=== PATIENT | female | born 1950 | race Caucasian/White ===

== ENCOUNTER 2016-01-02 08:48 | Outpatient (RCR) | payer BC ==
[~2016-01-02 08:48] MED LIST: AML2.5T PO
[2016-01-02 09:00] LABS: MEAN CORPUSCULAR HEMOGLOBIN 29.9 PG (26.0-34.0); MEAN CORPUSCULAR HGB CONC 32.4 g/dL (31.0-37.0); MEAN CORPUSCULAR VOLUME 92 FL (80-100); MEAN PLATELET VOLUME 10.9 FL (6.0-9.5); PLATELET COUNT 181 10^3uL (150-450); WHITE BLOOD COUNT 3.96 10^3uL (4.0-11.0)
[2016-01-02 09:43] LABS: BAND NEUTROPHILS % 1 % (0-6); EOSINOPHILS % 3 % (0-4); LYMPHOCYTES # 1.4 #; MONOCYTES # 0.5 #; MONOCYTES % 17 % (3-11); RBC MORPH NORMAL (NORMAL); SEGMENTED NEUTROPHILS % 43 % (51-67); TOTAL CELLS COUNTED 100
[2016-01-16 08:36] LABS: BASOPHILS % (AUTO) 1 % (0-2); EOSINOPHILS # (AUTO) 0.1 10^3uL; EOSINOPHILS % (AUTO) 2 % (0-4); LYMPHOCYTES # (AUTO) 1.5 X10^3; MEAN CORPUSCULAR HEMOGLOBIN 30.3 PG (26.0-34.0); MEAN CORPUSCULAR VOLUME 95 FL (80-100); MEAN PLATELET VOLUME 11.7 FL (6.0-9.5); MONOCYTES # (AUTO) 0.7 X10^3; MONOCYTES % (AUTO) 12 % (3-11); NEUTROPHILS # (AUTO) 3.7 X10^3; NEUTROPHILS % (AUTO) 61 % (51-67); PLATELET COUNT 169 10^3uL (150-450); WHITE BLOOD COUNT 6.14 10^3uL (4.0-11.0)
[2016-01-30 08:40] LABS: MEAN CORPUSCULAR HEMOGLOBIN 30.6 PG (26.0-34.0); MEAN CORPUSCULAR HGB CONC 32.4 g/dL (31.0-37.0); MEAN CORPUSCULAR VOLUME 94 FL (80-100); MEAN PLATELET VOLUME 11.1 FL (6.0-9.5); PLATELET COUNT 178 10^3uL (150-450); WHITE BLOOD COUNT 5.78 10^3uL (4.0-11.0)
[2016-01-30 08:53] LABS: ALBUMIN 3.9 g/dL (3.4-5.0); ANION GAP 16.2 MEQ/L (3-15); CALCULATED IONIZED CALCIUM 4.1 mg/dL (3.8-4.6); MAGNESIUM* 1.7 mg/dL (1.6-2.3); PHOSPHORUS 3.7 mg/dL (2.4-4.9); TOTAL PROTEIN 7.2 g/dL (6.4-8.5)
[2016-01-30 09:43] LABS: BAND NEUTROPHILS % 1 % (0-6); EOSINOPHILS % 2 % (0-4); LYMPHOCYTES # 1.4 #; MONOCYTES # 0.2 #; MONOCYTES % 3 % (3-11); RBC MORPH NORMAL (NORMAL)
[2016-01-30 14:32] LABS: SEGMENTED NEUTROPHILS % 70 % (51-67); TOTAL CELLS COUNTED 100
[2016-02-13 08:49] LABS: MEAN CORPUSCULAR HEMOGLOBIN 30.2 PG (26.0-34.0); MEAN CORPUSCULAR HGB CONC 32.3 g/dL (31.0-37.0); MEAN CORPUSCULAR VOLUME 93 FL (80-100); MEAN PLATELET VOLUME 11.4 FL (6.0-9.5); PLATELET COUNT 151 10^3uL (150-450); WHITE BLOOD COUNT 6.65 10^3uL (4.0-11.0)
[2016-02-13 09:41] LABS: BAND NEUTROPHILS % 0 % (0-6); EOSINOPHILS % 1 % (0-4); LYMPHOCYTES # 1.1 #; MONOCYTES # 0.2 #; MONOCYTES % 3 % (3-11); SEGMENTED NEUTROPHILS % 78 % (51-67); TOTAL CELLS COUNTED 100
[2016-02-13 09:42] LABS: RBC MORPH NORMAL (NORMAL)
[2016-02-27 08:40] LABS: BASOPHILS % (AUTO) 0 % (0-2); EOSINOPHILS # (AUTO) 0.1 10^3uL; EOSINOPHILS % (AUTO) 2 % (0-4); LYMPHOCYTES # (AUTO) 1.2 X10^3; MEAN CORPUSCULAR HEMOGLOBIN 29.9 PG (26.0-34.0); MEAN CORPUSCULAR HGB CONC 31.8 g/dL (31.0-37.0); MEAN CORPUSCULAR VOLUME 94 FL (80-100); MEAN PLATELET VOLUME 11.1 FL (6.0-9.5); MONOCYTES # (AUTO) 0.7 X10^3; MONOCYTES % (AUTO) 10 % (3-11); NEUTROPHILS # (AUTO) 4.9 X10^3; NEUTROPHILS % (AUTO) 70 % (51-67); PLATELET COUNT 155 10^3uL (150-450); WHITE BLOOD COUNT 7.02 10^3uL (4.0-11.0)
[2016-03-12 08:33] LABS: BASOPHILS % (AUTO) 0 % (0-2); EOSINOPHILS # (AUTO) 0.2 10^3uL; EOSINOPHILS % (AUTO) 3 % (0-4); LYMPHOCYTES # (AUTO) 1.6 X10^3; MEAN CORPUSCULAR HEMOGLOBIN 29.6 PG (26.0-34.0); MEAN CORPUSCULAR HGB CONC 32.2 g/dL (31.0-37.0); MEAN CORPUSCULAR VOLUME 92 FL (80-100); MEAN PLATELET VOLUME 10.9 FL (6.0-9.5); MONOCYTES # (AUTO) 0.8 X10^3; MONOCYTES % (AUTO) 11 % (3-11); NEUTROPHILS # (AUTO) 4.5 X10^3; NEUTROPHILS % (AUTO) 64 % (51-67); PLATELET COUNT 153 10^3uL (150-450); WHITE BLOOD COUNT 7.14 10^3uL (4.0-11.0)
[2016-03-12 08:42] LABS: MAGNESIUM* 1.4 mg/dL (1.6-2.3)
== END 2016-04-01 | disposition home or self-care (01) ==
LOC: LAB 08:48
PROVIDERS: ATTEND Internal Medicine Hematology & Oncology
DX: C18.5 Malignant neoplasm of splenic flexure (principal)
CPT/HCPCS: 36415; 80053; 82378; 82565; 83615; 83735; 84100; 84520; 85007; 85025; 85027

== ENCOUNTER 2016-04-02 10:20 | Outpatient (RCR) | payer BC ==
[2016-04-02 08:35] LABS: BASOPHILS % (AUTO) 1 % (0-2); EOSINOPHILS # (AUTO) 0.2 10^3uL; EOSINOPHILS % (AUTO) 3 % (0-4); LYMPHOCYTES # (AUTO) 1.4 X10^3; MEAN CORPUSCULAR HEMOGLOBIN 29.7 PG (26.0-34.0); MEAN CORPUSCULAR HGB CONC 32.3 g/dL (31.0-37.0); MEAN CORPUSCULAR VOLUME 92 FL (80-100); MEAN PLATELET VOLUME 11.7 FL (6.0-9.5); MONOCYTES # (AUTO) 0.7 X10^3; MONOCYTES % (AUTO) 13 % (3-11); NEUTROPHILS # (AUTO) 2.9 X10^3; NEUTROPHILS % (AUTO) 55 % (51-67); PLATELET COUNT 161 10^3uL (150-450); WHITE BLOOD COUNT 5.24 10^3uL (4.0-11.0)
[2016-04-16 08:44] LABS: BASOPHILS % (AUTO) 0 % (0-2); EOSINOPHILS # (AUTO) 0.3 10^3uL; EOSINOPHILS % (AUTO) 5 % (0-4); LYMPHOCYTES # (AUTO) 1.4 X10^3; MEAN CORPUSCULAR HGB CONC 32.2 g/dL (31.0-37.0); MEAN CORPUSCULAR VOLUME 93 FL (80-100); MEAN PLATELET VOLUME 11.2 FL (6.0-9.5); MONOCYTES # (AUTO) 0.6 X10^3; MONOCYTES % (AUTO) 10 % (3-11); NEUTROPHILS # (AUTO) 3.9 X10^3; NEUTROPHILS % (AUTO) 62 % (51-67); PLATELET COUNT 153 10^3uL (150-450)
[2016-04-30 08:37] LABS: MEAN CORPUSCULAR HEMOGLOBIN 30.2 PG (26.0-34.0); MEAN CORPUSCULAR HGB CONC 32.6 g/dL (31.0-37.0); MEAN CORPUSCULAR VOLUME 93 FL (80-100); PLATELET COUNT 141 10^3uL (150-450); WHITE BLOOD COUNT 3.34 10^3uL (4.0-11.0)
[2016-04-30 08:47] LABS: BAND NEUTROPHILS % 0 % (0-6); EOSINOPHILS % 1 % (0-4); MONOCYTES # 0.3 #; MONOCYTES % 9 % (3-11); RBC MORPH NORMAL (NORMAL); SEGMENTED NEUTROPHILS % 60 % (51-67); TOTAL CELLS COUNTED 100
[2016-04-30 08:54] LABS: MAGNESIUM* 1.8 mg/dL (1.6-2.3)
[2016-04-30 10:22] LABS: ALBUMIN 3.5 g/dL (3.4-5.0); ALKALINE PHOSPHATASE 113 U/L (38-126); BUN/CREATININE RATIO 19 (10-20); CALCULATED IONIZED CALCIUM 4.4 mg/dL (3.8-4.6); TOTAL PROTEIN 5.9 g/dL (6.4-8.5)
[2016-05-14 08:31] LABS: MEAN CORPUSCULAR HEMOGLOBIN 30.2 PG (26.0-34.0); MEAN CORPUSCULAR HGB CONC 33.5 g/dL (31.0-37.0); MEAN CORPUSCULAR VOLUME 90 FL (80-100); MEAN PLATELET VOLUME 10.8 FL (6.0-9.5); PLATELET COUNT 97 10^3uL (150-450); WHITE BLOOD COUNT 2.06 10^3uL (4.0-11.0)
[2016-05-14 08:45] LABS: ALBUMIN 3.6 g/dL (3.4-5.0); ANION GAP 13.9 MEQ/L (3-15); CALCULATED IONIZED CALCIUM 4.2 mg/dL (3.8-4.6); MAGNESIUM* 1.7 mg/dL (1.6-2.3); TOTAL PROTEIN 6.5 g/dL (6.4-8.5)
[2016-05-14 09:07] LABS: SEGMENTED NEUTROPHILS % 34 % (51-67)
[2016-05-14 09:08] LABS: BAND NEUTROPHILS % 5 % (0-6); EOSINOPHILS % 2 % (0-4); LYMPHOCYTES # 0.9 #; MONOCYTES # 0.3 #; MONOCYTES % 15 % (3-11); RBC MORPH NORMAL (NORMAL); TOTAL CELLS COUNTED 100
[2016-05-21 08:43] LABS: MEAN CORPUSCULAR HEMOGLOBIN 30.6 PG (26.0-34.0); MEAN CORPUSCULAR HGB CONC 32.9 g/dL (31.0-37.0); MEAN CORPUSCULAR VOLUME 93 FL (80-100); MEAN PLATELET VOLUME 11.4 FL (6.0-9.5); PLATELET COUNT 129 10^3uL (150-450)
[2016-05-21 08:56] LABS: BAND NEUTROPHILS % 12 % (0-6); EOSINOPHILS % 1 % (0-4); LYMPHOCYTES # 2.2 #; MONOCYTES # 1.3 #; MONOCYTES % 11 % (3-11); SEGMENTED NEUTROPHILS % 57 % (51-67); TOTAL CELLS COUNTED 100
[2016-05-21 08:57] LABS: ANISOCYTOSIS MODERATE; RBC MORPH SEE REFERENCE (NORMAL)
[2016-06-08 08:59] LABS: MEAN CORPUSCULAR HEMOGLOBIN 29.9 PG (26.0-34.0); MEAN CORPUSCULAR VOLUME 94 FL (80-100); MEAN PLATELET VOLUME 11.4 FL (6.0-9.5); PLATELET COUNT 245 10^3uL (150-450); WHITE BLOOD COUNT 3.61 10^3uL (4.0-11.0)
[2016-06-08 09:12] LABS: MEAN CORPUSCULAR HGB CONC 31.7 g/dL (31.0-37.0)
[2016-06-08 09:16] LABS: ALBUMIN 3.1 g/dL (3.4-5.0); CALCULATED IONIZED CALCIUM 4.3 mg/dL (3.8-4.6); MAGNESIUM* 1.5 mg/dL (1.6-2.3); TOTAL PROTEIN 5.9 g/dL (6.4-8.5)
[2016-06-08 10:15] LABS: ANISOCYTOSIS SLIGHT; BAND NEUTROPHILS % 2 % (0-6); EOSINOPHILS % 2 % (0-4); LYMPHOCYTES # 0.9 #; MONOCYTES # 1.1 #; MONOCYTES % 35 % (3-11); RBC MORPH SEE REFERENCE (NORMAL); SEGMENTED NEUTROPHILS % 36 % (51-67); TOTAL CELLS COUNTED 100
[2016-06-25 08:39] LABS: MEAN CORPUSCULAR HEMOGLOBIN 28.9 PG (26.0-34.0); MEAN CORPUSCULAR VOLUME 92 FL (80-100); PLATELET COUNT 150 10^3uL (150-450)
[2016-06-25 08:42] LABS: MEAN CORPUSCULAR HGB CONC 31.4 g/dL (31.0-37.0)
[2016-06-25 08:43] LABS: BAND NEUTROPHILS % 0 % (0-6); EOSINOPHILS % 7 % (0-4); LYMPHOCYTES # 0.3 #; MONOCYTES # 0.3 #; MONOCYTES % 10 % (3-11); RBC MORPH NORMAL (NORMAL); SEGMENTED NEUTROPHILS % 75 % (51-67); TOTAL CELLS COUNTED 100
[2016-06-25 09:03] LABS: ALBUMIN 3.8 g/dL (3.4-5.0); ANION GAP 18.6 MEQ/L (3-15); CALCULATED IONIZED CALCIUM 4.3 mg/dL (3.8-4.6); MAGNESIUM* 1.5 mg/dL (1.6-2.3); TOTAL PROTEIN 6.9 g/dL (6.4-8.5)
== END 2016-07-01 | disposition home or self-care (01) ==
LOC: LAB 10:20
PROVIDERS: ATTEND Internal Medicine Hematology & Oncology
DX: C18.5 Malignant neoplasm of splenic flexure (principal)
CPT/HCPCS: 36415; 80053; 82378; 83615; 83735; 84100; 85007; 85025; 85027

== ENCOUNTER → 2016-04-30 | Outpatient (CLI) | payer BC | LOC: RAD 09:41 | PROVIDERS: ATTEND Internal Medicine Hematology & Oncology | DX: M25.522 Pain in left elbow (principal); M54.2 Cervicalgia; R93.8 Abnormal findings on diagnostic imaging of other specified body structures | CPT/HCPCS: 70491; 93971; Q9967 ==

== ENCOUNTER → 2016-05-24 | Outpatient (CLI) | payer BC | LOC: RAD 07:27 | PROVIDERS: ATTEND Internal Medicine Hematology & Oncology | DX: M54.2 Cervicalgia (principal); C18.5 Malignant neoplasm of splenic flexure | CPT/HCPCS: 70553; 72156; A9579 ==

== ENCOUNTER → 2016-06-08 | Outpatient (CLI) | payer BC | LOC: RAD 07:54 | PROVIDERS: ATTEND Internal Medicine Hematology & Oncology | DX: C18.5 Malignant neoplasm of splenic flexure (principal) | CPT/HCPCS: 71260; 74178; Q9967 ==

== ENCOUNTER 2016-07-16 08:11 | Outpatient (RCR) | payer BC ==
[2016-07-16 08:33] LABS: MEAN CORPUSCULAR HEMOGLOBIN 28.9 PG (26.0-34.0); MEAN CORPUSCULAR HGB CONC 31.9 g/dL (31.0-37.0); MEAN CORPUSCULAR VOLUME 91 FL (80-100); MEAN PLATELET VOLUME 11.6 FL (6.0-9.5); PLATELET COUNT 157 10^3uL (150-450); WHITE BLOOD COUNT 3.56 10^3uL (4.0-11.0)
[2016-07-16 08:50] LABS: ANISOCYTOSIS SLIGHT; BAND NEUTROPHILS % 1 % (0-6); EOSINOPHILS % 3 % (0-4); LYMPHOCYTES # 0.9 #; MONOCYTES # 0.4 #; MONOCYTES % 12 % (3-11); RBC MORPH SEE REFERENCE (NORMAL); SEGMENTED NEUTROPHILS % 58 % (51-67); TOTAL CELLS COUNTED 100
[2016-07-30 07:58] LABS: BASOPHILS % (AUTO) 1 % (0-2); EOSINOPHILS # (AUTO) 0.1 10^3uL; EOSINOPHILS % (AUTO) 3 % (0-4); MEAN CORPUSCULAR HEMOGLOBIN 28.8 PG (26.0-34.0); MEAN CORPUSCULAR VOLUME 91 FL (80-100); MEAN PLATELET VOLUME 11.2 FL (6.0-9.5); MONOCYTES # (AUTO) 0.5 X10^3; MONOCYTES % (AUTO) 14 % (3-11); NEUTROPHILS % (AUTO) 54 % (51-67); PLATELET COUNT 130 10^3uL (150-450); WHITE BLOOD COUNT 3.69 10^3uL (4.0-11.0)
[2016-07-30 08:01] LABS: MEAN CORPUSCULAR HGB CONC 31.6 g/dL (31.0-37.0)
[2016-08-13 08:52] LABS: MEAN CORPUSCULAR HEMOGLOBIN 29.3 PG (26.0-34.0); MEAN CORPUSCULAR HGB CONC 32.1 g/dL (31.0-37.0); MEAN CORPUSCULAR VOLUME 91 FL (80-100); MEAN PLATELET VOLUME 11.3 FL (6.0-9.5); PLATELET COUNT 108 10^3uL (150-450); WHITE BLOOD COUNT 2.69 10^3uL (4.0-11.0)
[2016-08-13 09:25] LABS: ANISOCYTOSIS SLIGHT; BAND NEUTROPHILS % 1 % (0-6); EOSINOPHILS % 0 % (0-4); LYMPHOCYTES # 0.7 #; MONOCYTES # 0.3 #; MONOCYTES % 15 % (3-11); RBC MORPH SEE REFERENCE (NORMAL); SEGMENTED NEUTROPHILS % 58 % (51-67); TOTAL CELLS COUNTED 100
[2016-08-13 09:29] LABS: ALBUMIN 3.7 g/dL (3.4-5.0); CALCULATED IONIZED CALCIUM 4.3 mg/dL (3.8-4.6); MAGNESIUM* 1.7 mg/dL (1.6-2.3); TOTAL PROTEIN 6.6 g/dL (6.4-8.5)
== END 2016-08-22 19:23 | disposition home or self-care (01) ==
LOC: LAB 08:11
PROVIDERS: ATTEND Internal Medicine Hematology & Oncology
DX: C18.5 Malignant neoplasm of splenic flexure (principal)
CPT/HCPCS: 36415; 80053; 82378; 83615; 83735; 84100; 85007; 85025; 85027